=== PATIENT | female | born 1975 | race Two or more races ===

== ENCOUNTER 2017-08-16 15:09 | Outpatient (CLI) | payer OTHER | END 2017-08-16 15:23 | disposition home or self-care (01) | LOC: MAMO-SONO 15:09 | DX: N60.11 Diffuse cystic mastopathy of right breast (principal); N60.12 Diffuse cystic mastopathy of left breast ==

== ENCOUNTER 2017-11-08 10:29 | Outpatient (CLI) | payer OTHER | END 2017-11-08 15:54 | disposition home or self-care (01) | LOC: TOM 10:29 | DX: I27.20 Pulmonary hypertension, unspecified (principal) ==

== ENCOUNTER 2018-08-15 12:38 | Outpatient (CLI) | payer OTHER | END 2018-08-15 12:44 | disposition home or self-care (01) | LOC: SONOGRAMA 12:38 → MAMO-SONO 13:45 | DX: E04.8 Other specified nontoxic goiter (principal); M54.5 Low back pain ==

== ENCOUNTER 2018-08-15 12:43 | Outpatient (CLI) | payer OTHER | END 2018-08-15 13:19 | disposition HB | LOC: LAB 12:43 | DX: M54.5 Low back pain (principal); E04.2 Nontoxic multinodular goiter; M05.40 Rheumatoid myopathy with rheumatoid arthritis of unspecified site; I11.0 Hypertensive heart disease with heart failure; E78.2 Mixed hyperlipidemia ==

== ENCOUNTER 2018-10-25 13:19 | Outpatient (CLI) | payer OTHER | END 2018-10-25 13:42 | disposition home or self-care (01) | LOC: LAB 13:19 | DX: M32.8 Other forms of systemic lupus erythematosus (principal); J45.998 Other asthma ==

== ENCOUNTER 2018-12-21 09:12 | Outpatient (CLI) | payer OTHER | END 2018-12-21 09:54 | disposition home or self-care (01) | LOC: LAB 09:12 | DX: M35.09 Sjogren syndrome with other organ involvement (principal); M35.04 Sjogren syndrome with tubulo-interstitial nephropathy; M35.02 Sjogren syndrome with lung involvement ==

== ENCOUNTER 2019-01-11 15:16 | Outpatient (CLI) | payer OTHER | END 2019-01-11 15:38 | disposition home or self-care (01) | LOC: LAB 15:16 | DX: N20.0 Calculus of kidney (principal) ==

== ENCOUNTER → 2019-01-22 | Outpatient (CLI) | payer OTHER | END | disposition home or self-care (01) | LOC: MRI 13:56 | DX: R13.19 Other dysphagia (principal) | CPT/HCPCS: 70540 ==

== ENCOUNTER 2019-03-26 11:23 | Outpatient (CLI) | payer OTHER | END 2019-03-26 11:33 | disposition home or self-care (01) | LOC: MAMO-SONO 11:23 | DX: Z12.31 Encounter for screening mammogram for malignant neoplasm of breast (principal); Z87.898 Personal history of other specified conditions; D24.2 Benign neoplasm of left breast ==

== ENCOUNTER 2019-04-12 09:06 | Outpatient (CLI) | payer OTHER | END 2019-04-12 14:30 | disposition home or self-care (01) | LOC: NUCLEAR 09:06 | DX: M06.4 Inflammatory polyarthropathy (principal) | CPT/HCPCS: 78315; A9503 ==

== ENCOUNTER 2020-01-27 08:45 | Outpatient (CLI) | payer OTHER | END 2020-01-27 15:00 | disposition home or self-care (01) | LOC: LAB 08:45 | PROVIDERS: ATTEND Specialist | DX: E03.8 Other specified hypothyroidism (principal); D50.8 Other iron deficiency anemias; E78.3 Hyperchylomicronemia ==

== ENCOUNTER 2020-01-27 09:18 | Outpatient (CLI) | payer OTHER | END 2020-01-27 09:40 | disposition home or self-care (01) | LOC: SONOGRAMA 09:18 → MAMO-SONO 09:18 → SONOGRAMA 09:40 → MAMO-SONO 09:45 | PROVIDERS: ATTEND Specialist | DX: N60.11 Diffuse cystic mastopathy of right breast (principal); N60.12 Diffuse cystic mastopathy of left breast; N94.89 Other specified conditions associated with female genital organs and menstrual cycle; N94.3 Premenstrual tension syndrome ==

== ENCOUNTER 2020-04-23 10:46 | Outpatient (CLI) | payer OTHER | END 2020-04-23 10:58 | disposition home or self-care (01) | LOC: MAMO-SONO 10:46 | PROVIDERS: ATTEND Specialist | DX: N60.11 Diffuse cystic mastopathy of right breast (principal); N60.12 Diffuse cystic mastopathy of left breast; Z12.31 Encounter for screening mammogram for malignant neoplasm of breast ==

== ENCOUNTER → 2020-08-07 09:20 | Outpatient (CLI) | payer OTHER | END | disposition home or self-care (01) | LOC: NUCLEAR 09:00 | PROVIDERS: ATTEND Internal Medicine Cardiovascular Disease | DX: I07.8 Other rheumatic tricuspid valve diseases (principal) ==

== ENCOUNTER → 2020-12-26 | Emergency (ER) | payer OTHER ==
[~2020-12-26] VITALS: Ht 198.1 cm; Wt 2345.1 kg
[~2020-12-26] MED LIST: FOLIC ACID1 MG PO; IRON325 MG PO; PRENATABS FA T1 EACH PO; PROGESTERO50 MG/1 ML IM; ST. JOSEPH ASPI81 M2 PO
== END | disposition left against medical advice (07) ==
LOC: ER 14:19
DX: Z53.20 Procedure and treatment not carried out because of patient's decision for unspecified reasons (principal)

== ENCOUNTER 2021-01-27 15:00 | Inpatient (IN) | payer OTHER ==
[~2021-01-27] VITALS: Ht 167.6 cm; Wt 86.6 kg
[~2021-01-27 15:00] MED LIST changes: -IRON325 MG PO; -PROGESTERO50 MG/1 ML IM
[2021-01-27] MEDS ORDERED: IRON325 MG PO (17:58)
[2021-01-27] MEDS ORDERED: PROGESTERO50 MG/1 ML IM (18:30)
== END 2021-02-01 14:44 | disposition home or self-care (01) | DRG 832 ==
LOC: LDR 15:00 → OB/GYN 01-29 16:00
PROVIDERS: ADMIT Specialist; ATTEND Specialist
PROC: 4A1HXFZ Monitoring of Products of Conception, Cardiac Rhythm, External Approach (ICD-10-PCS; principal; 2021-01-27)
PROC: BY4FZZZ Ultrasonography of Third Trimester, Single Fetus (ICD-10-PCS; 2021-01-27)
DX: O46.93 Antepartum hemorrhage, unspecified, third trimester (principal); O47.03 False labor before 37 completed weeks of gestation, third trimester; O34.212 Maternal care for vertical scar from previous cesarean delivery; Z3A.29 29 weeks gestation of pregnancy

== ENCOUNTER 2021-03-10 14:47 | Inpatient (IN) | payer OTHER ==
[~2021-03-10] VITALS: Ht 167.6 cm; Wt 2.7 kg
[~2021-03-10 14:47] MED LIST changes: +IRON325 MG PO; +PROGESTERO50 MG/1 ML IM
[2021-03-17] MEDS ORDERED: LANSOPRAZOLE30 MG (08:37)
== END 2021-03-18 12:46 | disposition home or self-care (01) | DRG 786 ==
LOC: OB/GYN 03-15 07:00 → O/R 03-15 09:42 → OB/GYN 03-15 09:42
PROVIDERS: ADMIT Specialist; ATTEND Specialist
PROC: 4A1HXFZ Monitoring of Products of Conception, Cardiac Rhythm, External Approach (ICD-10-PCS; 2021-03-15)
PROC: 10D00Z1 Extraction of Products of Conception, Low, Open Approach (ICD-10-PCS; principal; 2021-03-15 07:00)
DX: O34.212 Maternal care for vertical scar from previous cesarean delivery (principal); O60.14X0 Preterm labor third trimester with preterm delivery third trimester, not applicable or unspecified; Z3A.36 36 weeks gestation of pregnancy; Z37.0 Single live birth